=== PATIENT | female | born 1990 | race Caucasian/White ===

== ENCOUNTER 2017-04-05 20:21 | Emergency (ER) | payer BC ==
[~2017-04-05] VITALS: Ht 165.1 cm; Wt 102.1 kg
[~2017-04-05 20:21] MED LIST: BCPILLS PO; [UNRECOGNIZED DRUG - OTHER]
[2017-04-05 20:23] VITALS: TEMP 36.5; Ht 165.1 cm; Wt 102.1 kg
[2017-04-05] MEDS ORDERED: PHEN95TA14 PO (20:41)
[2017-04-05] MEDS ORDERED: SUMA100T16 PO (20:41)
[2017-04-05] MEDS ORDERED: BUPR-83 PO (20:41)
[2017-04-05 21:13] LABS: BASO % 0.1 %; BASO ABS # 0.01 K/uL (0-0.2); COMPLETE YES; EOS % 0.3 %; IG% 0.3 %; LYMPH % 18.6 %; LYMPH ABS # 2.13 K/uL (1.2-3.4); MEAN CELL VOLUME 86.8 fL (80-100); MEAN CORPUSCULAR HEMOGLOBIN 28.4 pg (25-34); MEAN CORPUSCULAR HGB CONC 32.8 g/dl (32-36); MONO % 5.3 %; NEUT % 75.4 %; PLATELET COUNT 255 K/uL (130-400); RED BLOOD COUNT 4.61 M/uL (4.2-5.4); WHITE BLOOD COUNT 11.44 K/uL (4.8-10.8)
[2017-04-05] MEDS ORDERED: KETOROLAC TROMETHAMINE 30 MG/ML VIAL IV STA (21:20)
[2017-04-05] MEDS ORDERED: PROCHLORPERAZINE 5 MG/ML 2 ML VIAL IV STA (21:20)
[2017-04-05] MEDS ORDERED: DiphenhydrAMINE HCL 50 MG/ML VIAL IV STA (21:20)
[2017-04-05] MEDS ORDERED: SODIUM CHLORIDE 0.9% 1000ML 2,000 ML IV STA (21:20)
[2017-04-05 21:30] LABS: BUN/CREATININE RATIO 18.2 (10-20); CALCIUM 9.2 mg/dl (8.5-10.1); CREATININE 0.68 mg/dl (0.60-1.20); POTASSIUM 4.1 mmol/L (3.5-5.1)
[2017-04-05 22:28] LABS: URINE APPEARANCE CLEAR (CLEAR); URINE BILIRUBIN NEG (NEG); URINE COLOR DK YELLOW; URINE EPITHELIAL CELL AUTO 20-30 /lpf (0-5); URINE NITRITE POS (NEG); URINE SPECIFIC GRAVITY 1.024 (1.000-1.030); UROBILINOGEN NEG (NEG)
[2017-04-05 22:36] LABS: MANUAL MICROSCOPIC REQUIRED? NO; REVIEW REQ? NO
[2017-04-05 22:37] LABS: SULFASALICYLIC ACID NEG (NEG)
[2017-04-05] MEDS ORDERED: CEFTRIAXONE SOD INJ 1 GM ADDVIAL IV STA (23:08)
[2017-04-06] MEDS ORDERED: CIPR-255 PO (00:25)
[2017-04-06] MEDS ORDERED: PROM25TA9 PO (00:25)
[2017-04-06] MEDS ORDERED: CIPROFLOXACIN 500 MG TAB PO STA (00:28)
[2017-04-06] MEDS ORDERED: PHENERGAN 25MG HOMEPACK PO ONE (00:30)
[2017-04-06 00:37] VITALS: BP 112/61; PULSE 67; O2SAT 98
--- NOTE | 2017-04-06 01:33 | EMERGENCY ROOM VISIT NOTE ---
History Report prepared by Miya: Babs Avilez Under the Supervision of: Dr. Rebel Tang M.D. First contact with patient: 20:49 Chief Complaint: VOMITING Stated Complaint: CHEST TIGHTNESS,VOMITING,SOB,WEAKNESS History of Present Illness The patient is a 27 year old female who presents to the Emergency Room with complaints of persistent vomiting starting 1430 today. She vomited over 10 times today. She also had 2 bowel movements within 30 minutes. She complains of abdominal pain which worsened with more vomiting. She started taking Azo yesterday because she developed urinary symptoms. She is still having the urinary symptoms. Today she developed a headache, but she has been unable to take any medications because of her vomiting. She has a history of migraines for several years now. She denies any previous abdominal surgeries. 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 She denies eating any unusual food recently. Pt denies LOC, fevers, chills, diaphoresis, visual changes, neck pain, chest pain, breathing difficulties, back pain, melena, hematochezia, numbness, weakness, lymphadenopathy, rash, or other complaints. Source of History: patient Onset: 1430 Position: other (global) Quality: other (vomiting) Timing: other (persistent) Associated Symptoms: + headache, + nausea, + abdominal pain, + urinary symptoms Review of Systems See HPI for pertinent positives and negatives. A total of ten systems were reviewed and were otherwise negative. Past Medical & Surgical Medical Problems: (1) FAM HX-DIABETES MELLITUS (2) FAM HX-ISCHEM HEART DIS (3) FAMILY HISTORY OF OTHER CARDIOVASCULAR DISEASES (4) FAMILY HX-MALIGNANCY NOS (5) Seizure (6) [place] Teeth Removal Family History No pertinent family history stated. Social History Smoking Status: Never Smoker Alcohol Use: occasionally Marital Status: single Housing Status: lives with family Occupation Status: employed Current/Historical Medications Scheduled Control Pills ( Control Pills), 1 TAB PO DAILY Bupropion (Wellbutrin), 100 MG PO QAM Ciprofloxacin Hcl (Cipro), 500 MG PO BID Phenazopyridine Hcl (Azo Tabs), 1 DOSE PO TID Sumatriptan Succinate (Imitrex), 100 MG PO PRN Scheduled PRN Promethazine Hcl (Phenergan), 25 MG PO Q6H PRN for Nausea Allergies Coded Allergies: Sulfa Drugs (Verified Allergy, Intermediate, SHORTNESS OF BREATH, 04/05/17 ) Physical Exam Vital Signs Date Time Temp Pulse Resp B/P (MAP) Pulse Ox O2 Delivery O2 Flow Rate FiO2 04/06/17 00:37 67 20 112/61 98 Room Air 04/05/17 23:35 72 20 131/73 97 Room Air 04/05/17 21:41 84 20 145/107 98 Room Air 04/05/17 20:23 36.5 92 20 163/113 98 Room Air Physical Exam GENERAL: Awake, alert, uncomfortable appearing, no distress HEAD: Normocephalic, atraumatic. No edema. EYES: Normal conjunctiva. Sclera non-icteric. OROPHARYNX: Lips, tongue, and mucosa unremarkable. No erythema or exudate. NECK: Supple. No nuchal rigidity. FROM. No adenopathy. RESPIRATORY: CTA bilaterally. No wheezes rales or rhonchi. CARDIAC: Borderline tachycardic rate, normal rhythm. ABDOMEN: Soft, non distended. Epigastric tenderness to palpation. No rebound or guarding. MUSCULOSKELETAL: Atraumatic. No edema. Patient has some mild left CVA tenderness. NEURO: Normal sensorium. SKIN: No rash or jaundice noted Medical Decision & Procedures Laboratory Results 04/05/17 21:05 Red Blood Count 4.61, Mean Corpuscular Volume 86.8, Mean Corpuscular Hemoglobin 28.4, Mean Corpuscular Hemoglobin Concent 32.8, Mean Platelet Volume 9.0, Neutrophils (%) (Auto) 75.4, Lymphocytes (%) (Auto) 18.6, Monocytes (%) (Auto) 5.3, Eosinophils (%) (Auto) 0.3, Basophils (%) (Auto) 0.1, Neutrophils # (Auto) 8.63, Lymphocytes # (Auto) 2.13, Monocytes # (Auto) 0.61, Eosinophils # (Auto) 0.03, Basophils # (Auto) 0.01 04/05/17 21:05 Test 04/05/17 21:05 04/05/17 21:55 White Blood Count 11.44 K/uL (4.8-10.8) Red Blood Count 4.61 M/uL (4.2-5.4) Hemoglobin 13.1 g/dL (12.0-16.0) Hematocrit 40.0 % (37-47) Mean Corpuscular Volume 86.8 fL (80-100) Mean Corpuscular Hemoglobin 28.4 pg (25-34) Mean Corpuscular Hemoglobin Concent 32.8 g/dl (32-36) Platelet Count 255 K/uL (130-400) Mean Platelet Volume 9.0 fL (7.4-10.4) Neutrophils (%) (Auto) 75.4 % Lymphocytes (%) (Auto) 18.6 % Monocytes (%) (Auto) 5.3 % Eosinophils (%) (Auto) 0.3 % Basophils (%) (Auto) 0.1 % Neutrophils # (Auto) 8.63 K/uL (1.4-6.5) Lymphocytes # (Auto) 2.13 K/uL (1.2-3.4) Monocytes # (Auto) 0.61 K/uL (0.11-0.59) Eosinophils # (Auto) 0.03 K/uL (0-0.5) Basophils # (Auto) 0.01 K/uL (0-0.2) RDW Standard Deviation 42.3 fL (36.4-46.3) RDW Coefficient of Variation 13.3 % (11.5-14.5) Immature Granulocyte % (Auto) 0.3 % Immature Granulocyte # (Auto) 0.03 K/uL (0.00-0.02) Anion Gap 7.0 mmol/L (3-11) Est Creatinine Clear Calc Drug Dose 148.5 ml/min Estimated GFR () 139.9 Estimated GFR (Non- 120.7 BUN/Creatinine Ratio 18.2 (10-20) Calcium Level 9.2 mg/dl (8.5-10.1) Total Bilirubin 0.5 mg/dl (0.2-1) Aspartate Amino Transf (AST/SGOT) 20 U/L (15-37) Alanine Aminotransferase (ALT/SGPT) 31 U/L (12-78) Alkaline Phosphatase 63 U/L (45-117) Total Protein 7.9 gm/dl (6.4-8.2) Albumin 3.9 gm/dl (3.4-5.0) Globulin 4.0 gm/dl (2.5-4.0) Albumin/Globulin Ratio 1.0 (0.9-2) Urine Color DK YELLOW Urine Appearance CLEAR (CLEAR) Urine pH 8.0 (4.5-7.5) Urine Specific [place] 1.024 (1.000-1.030) Urine Protein NEG (NEG) Urine Glucose (UA) NEG (NEG) Urine Ketones NEG (NEG) Urine Occult Blood NEG (NEG) Urine Nitrite POS (NEG) Urine Bilirubin NEG (NEG) Urine Urobilinogen NEG (NEG) Urine Leukocyte Esterase MODERATE (NEG) Urine WBC (Auto) >30 /hpf (0-5) Urine RBC (Auto) 0-4 /hpf (0-4) Urine Hyaline Casts (Auto) 1-5 /lpf (0-5) Urine Epithelial Cells (Auto) 20-30 /lpf (0-5) Urine Bacteria (Auto) 4+ (NEG) Urine Test NEG (NEG) Laboratory results reviewed by me Medications Administered Medications (Trade) Dose Ordered Sig/Braulio Route Start Time Stop Time Status Last Admin Dose Admin Sodium Chloride 2,000 ml @ 999 mls/hr Q2H1M STAT IV 04/05/17 21:20 04/05/17 23:20 DC 04/05/17 21:30 999 MLS/HR Prochlorperazine Edisylate (Compazine Inj) 10 mg NOW STAT IV 04/05/17 21:20 04/05/17 21:22 DC 04/05/17 21:29 10 MG Diphenhydramine HCl (Benadryl Inj) 50 mg NOW STAT IV 04/05/17 21:20 04/05/17 21:22 DC 04/05/17 21:30 50 MG Ketorolac Tromethamine (Toradol Inj) 10 mg NOW STAT IV 04/05/17 21:20 04/05/17 21:22 DC 04/05/17 21:30 10 MG Ceftriaxone Sodium (Rocephin Inj) 1 gm NOW STAT IV 04/05/17 23:08 04/05/17 23:09 DC 04/05/17 23:32 1 GM Promethazine HCl (Phenergan 25MG Home Pack) 1 homepack UD ONCE PO 04/06/17 00:30 04/06/17 00:31 DC 04/06/17 00:35 1 HOMEPACK Ciprofloxacin (Cipro Tab) 500 mg NOW STAT PO 04/06/17 00:28 04/06/17 00:29 DC 04/06/17 00:35 500 MG ED Course 2113: The patient was evaluated in room C8. A complete history and physical exam was performed. 2119: Toradol Inj 10 mg IV, Benadryl Inj 50 mg IV, Compazine Inj 10 mg IV, NSS 2000 ml @ 999 mls/hr IV. 8: Rocephin Inj 1 gm IV. 2320: I reevaluated the patient. She is feeling much better. I discussed the results and treatment plan. 0028: Ciprofloxacin 500 mg PO. 0029: I reevaluated the patient. She feels much better. I discussed results and discharge instructions: she verbalized understanding and agreement. The patient is ready for discharge. 0030: Promethazine HCl 1 homepack PO. Medical Decision Triage Nursing notes reviewed. The patient's presentation and history were concerning for nausea and vomiting with urinary symptoms. Etiologies such as UTI, gastroenteritis, food borne illness, infections, obstruction, pancreatitis, appendicitis, diverticulitis, inflammatory bowel disease, GI bleed, biliary pathology, toxicologic as well as others were entertained. The patient was evaluated. She was given Compazine and Benadryl and IV fluids. She was hydrated and felt much better. She was given Toradol as well. The patient's urinalysis is concerning for infection. Her CBC and chemistry panel are unremarkable. Patient is given IV Rocephin. On reassessment she was feeling much better. This seems to be most consistent with pyelonephritis given the constellation of symptoms and workup here. She had a benign abdomen. Imaging was deferred. The patient will be placed on Cipro. Phenergan was given for use in case of nausea and vomiting. If she worsens she will come back.I gave my usual and customary discussion regarding this issue. Work note given. By the evaluation outlined above other emergent etiologies such as those listed in the differential, as well as others, were deemed relatively unlikely. The patient was educated about the findings as listed above. All questions were answered and the patient was pleased with the treatment. Return instructions were outlined and the patient was discharged in stable condition. The patient was referred to her PCP for follow-up for a recheck of the current condition. Medication Reconcilliation Current Medication List: was personally reviewed by me Blood Pressure Screening Patient's blood pressure: Elevated blood pressure Blood pressure disposition: Referred to PCP Impression Primary Impression: Pyelonephritis Additional Impression: Vomiting Scribe Attestation The scribe's documentation has been prepared under my direction and personally reviewed by me in its entirety. I confirm that the note above accurately reflects all work, treatment, procedures, and medical decision making performed by me. Departure Information Dispostion Home / Self-Care Prescriptions Promethazine Hcl (Phenergan) 25 Mg Tab 25 MG PO Q6H Y for Nausea, #10 TAB Prov: Rebel Tang MD 04/06/17 Ciprofloxacin Hcl (CIPRO) 500 Mg Tab 500 MG PO BID, #14 TAB Prov: Rebel Tang MD 04/06/17 Referrals Nancy Cat M.D. Forms HOME CARE DOCUMENTATION FORM, IMPORTANT VISIT INFORMATION Patient Instructions My [facility] Additional Instructions URINARY TRACT INFECTION INSTRUCTIONS: Ciprofloxacin(Cipro) 500mg: Take one pill twice daily for 7 days for your urine infection. All antibiotics can cause diarrhea. If this occurs and you feel worse or it does not resolve in 1-2 days follow up with your doctor or return to the Emergency Department as this could be signs of serious underlying problems. If you experience any pain in your tendons or any tendon injury return to the ER for re-evaluation. Any medication can cause an allergic reaction, stop the pills immediately and return to the ER for rash, hives, breathing difficulties, or swelling. Phenergan 25mg tabs, one every six hours for nausea. Ibuprofen(Motrin, Advil) may be used for fever or pain. Use 600mg every six hours as needed. Take with food. Avoid using more than 2400mg in a 24 hour period. Do not use 2400mg per day for more than three consecutive days without physician direction. Prolonged inappropriate use can lead to stomach upset or ulcers. (AND/OR) Acetaminophen(Tylenol) may be used for fever or pain. Use 1000mg every six hours as needed. Avoid using more than 4000mg in a 24 hour period. Rest and drink plenty of fluids. Continue current medications. Return to the ER immediately for worsening or persistent abdominal pain, vomiting, fevers, back or flank pain, worsening of your condition, or as needed. Follow up with your primary physician within 2-3 days for a recheck of the current condition. Problem Qualifiers
--- NOTE | 2017-04-07 11:53 | Pharmacy Progress Note ---
ED Pharmacist Culture FollowUp Date of Service: Apr 07, 2017. Patient was sent home with a prescription for ciprofloxacin, which should cover the E. coli growing from the patient's urine culture.
== END 2017-04-06 00:44 | disposition home or self-care (01) ==
LOC: C.EDB 20:22 → C.EDC 04-06 00:44
DX: N10 Acute pyelonephritis (principal); R11.10 Vomiting, unspecified; G40.909 Epilepsy, unspecified, not intractable, without status epilepticus; Z79.899 Other long term (current) drug therapy; Z88.2 Allergy status to sulfonamides

== ENCOUNTER → 2017-04-14 | Outpatient (CLI) | payer OTHER ==
[~2017-04-14] MED LIST changes: +BUPR-83 PO; +CIPR-255 PO; +PHEN95TA14 PO; +PROM25TA9 PO; +SUMA100T16 PO; -[UNRECOGNIZED DRUG - OTHER]
[2017-04-19 04:30] LABS: HEPATITIS BE ANTIGEN TC 555 Nonreactive
== END | disposition home or self-care (01) ==
LOC: C.LAB1850 16:04
PROVIDERS: ATTEND Internal Medicine
DX: Z57.8 Occupational exposure to other risk factors (principal)

== ENCOUNTER 2018-02-07 23:33 | Emergency (ER) | payer BC, OTHER ==
[~2018-02-07] VITALS: Ht 165.1 cm; Wt 107.7 kg
[~2018-02-07 23:33] MED LIST changes: -PROM25TA9 PO
[2018-02-07 23:55] VITALS: Ht 165.1 cm; Wt 107.7 kg
[2018-02-08] MEDS ORDERED: ONDANSETRON INJ 2 MG/ML 2 ML VIAL IV STA (00:11)
[2018-02-08] MEDS ORDERED: KETOROLAC TROMETHAMINE 30 MG/ML VIAL IV STA (00:11)
[2018-02-08] MEDS ORDERED: SODIUM CHLORIDE 0.9% 1000ML 1,000 ML IV STA (00:11)
--- NOTE | 2018-02-08 00:19 | EMERGENCY ROOM VISIT NOTE ---
History Report prepared by Miya: Juan Denton Under the Supervision of: Dr. Janis Camacho D.O. First contact with patient: 23:51 Chief Complaint: INFECTION Stated Complaint: RED ITCHY BUMPS ON HANDS,FEET AND THROAT SORE History of Present Illness The patient is a 27 year old female who presents to the Emergency Room with complaints of a constant sore throat beginning three days ago. The patient states that she started to feel ill three days ago but thought that she was just overworked and tired. She notes that she developed a fever that worsened yesterday. She also complains of difficulty swallowing. She reports that she went to a walk in clinic and was told that she had a viral URI and had liquid draining from behind her ears. The patient states that she had a rapid strep test done at that time which came back negative. She also complains of diarrhea and vomiting beginning yesterday. She reports that she has not been able to keep anything down for the last 24 hours and she states that her fever has not broken in the last three days. She notes that she also developed red bumps on her hands, chest, and feet. She reports that she has white bumps in the back of her throat. She denies any abdominal pain. The patient states that she has been taking Tylenol and aspirin for her fever, and she notes that she last took Tylenol around 2229. 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 She reports that her niece recently had a cold. The patient states that she has a history of two sebaceous cysts removed from her right breast as well as her wisdom teeth removed. Source of History: patient Onset: three days ago Position: other (throat) Quality: other (sorethroat) Timing: constant Associated Symptoms: + fevers, + vomiting, + diarrhea, No abdominal pain Note: The patient also complains of difficulty swallowing, red bumps on her hands, chest, and feet, and white bumps in the back of her throat. Review of Systems See HPI for pertinent positives & negatives. A total of 10 systems reviewed and were otherwise negative. Past Medical & Surgical Medical Problems: (1) FAM HX-DIABETES MELLITUS (2) FAM HX-ISCHEM HEART DIS (3) FAMILY HISTORY OF OTHER CARDIOVASCULAR DISEASES (4) FAMILY HX-MALIGNANCY NOS (5) Migraine (6) Sebaceous cyst of breast (7) Seizure (8) UTI (urinary tract infection) (9) [place] Teeth Removal Family History Cancer Hypertension Seizures Social History Smoking Status: Never Smoker Alcohol Use: occasionally Marital Status: single Housing Status: lives with family Occupation Status: employed Current/Historical Medications Scheduled Control Pills ( Control Pills), 1 TAB PO DAILY Doxycycline (Monohydrate) (Doxycycline), 100 MG PO BID Triamcinolone Acetonide (Topic (Triamcinolone Acet 0.025%), 1 APPLN TOP DAILY Scheduled PRN Fluticasone Propionate (Nasal) (Flonase Allergy Relief), 1-2 SPRAYS ANASTACIA DAILY PRN for Nasal Congestion Sumatriptan Succinate (Imitrex), 100 MG PO UD PRN for Migraine Allergies Coded Allergies: Sulfa Drugs (Verified Allergy, Intermediate, SHORTNESS OF BREATH, 02/08/18) Physical Exam Vital Signs Date Time Temp Pulse Resp B/P (MAP) Pulse Ox O2 Delivery O2 Flow Rate FiO2 02/08/18 01:12 37.0 89 16 116/89 97 Room Air 02/08/18 00:29 90 16 120/85 99 Room Air 02/07/18 23:55 37.4 113 20 158/103 98 Room Air Physical Exam HEENT: Head - normocephalic and atraumatic Pupils are equal, round, and reactive to light. Extraocular eye muscles are intact, and sclera are anicteric. Nose - moist nasal mucosa without discharge. Mouth - moist buccal mucosa. Oropharynx is nonerythematous. Tonsillar exudate and edema noted. Vesicular lesions about roof of mouth. Ears - TMs normal. Neck: Supple; no JVD, nuchal rigidity, cervical lymphadenopathy Heart: Regular rate and rhythm. There is a normal S1 and S2 with no murmurs, clicks, or gallops appreciated. Lungs: Clear to auscultation bilaterally with no wheezes, rales, or rhonchi. Abdomen: Soft, completely nontender, nondistended, with good bowel sounds. There are no palpable pulsatile masses or hepatosplenomegaly. There is no guarding, rigidity, or rebound noted. Extremities: No evidence of cyanosis, clubbing, or edema. There are easily palpable peripheral pulses. Skin: warm and dry with good turgor. Papular lesions to the palms of hands and soles of feet. Medical Decision & Procedures Laboratory Results 02/08/18 00:20 Red Blood Count 4.59, Mean Corpuscular Volume 86.5, Mean Corpuscular Hemoglobin 28.8, Mean Corpuscular Hemoglobin Concent 33.2, Mean Platelet Volume 9.4, Neutrophils (%) (Auto) 69.1, Lymphocytes (%) (Auto) 20.3, Monocytes (%) (Auto) 10.4, Eosinophils (%) (Auto) 0.0, Basophils (%) (Auto) 0.1, Neutrophils # (Auto ) 5.42, Lymphocytes # (Auto) 1.59, Monocytes # (Auto) 0.82, Eosinophils # (Auto ) 0.00, Basophils # (Auto) 0.01 02/08/18 00:20 Test 02/08/18 00:00 02/08/18 00:20 Urine Color DK YELLOW Urine Appearance CLOUDY (CLEAR) Urine pH 5.0 (4.5-7.5) Urine Specific [place] 1.022 (1.000-1.030) Urine Protein TRACE (NEG) Urine Glucose (UA) NEG (NEG) Urine Ketones TRACE (NEG) Urine Occult Blood TRACE (NEG) Urine Nitrite NEG (NEG) Urine Bilirubin NEG (NEG) Urine Urobilinogen NEG (NEG) Urine Leukocyte Esterase MODERATE (NEG) Urine WBC (Auto) >30 /hpf (0-5) Urine RBC (Auto) 0-4 /hpf (0-4) Urine Hyaline Casts (Auto) 5-10 /lpf (0-5) Urine Epithelial Cells (Auto) >30 /lpf (0-5) Urine Bacteria (Auto) 2+ (NEG) White Blood Count 7.85 K/uL (4.8-10.8) Red Blood Count 4.59 M/uL (4.2-5.4) Hemoglobin 13.2 g/dL (12.0-16.0) Hematocrit 39.7 % (37-47) Mean Corpuscular Volume 86.5 fL (80-100) Mean Corpuscular Hemoglobin 28.8 pg (25-34) Mean Corpuscular Hemoglobin Concent 33.2 g/dl (32-36) Platelet Count 195 K/uL (130-400) Mean Platelet Volume 9.4 fL (7.4-10.4) Neutrophils (%) (Auto) 69.1 % Lymphocytes (%) (Auto) 20.3 % Monocytes (%) (Auto) 10.4 % Eosinophils (%) (Auto) 0.0 % Basophils (%) (Auto) 0.1 % Neutrophils # (Auto) 5.42 K/uL (1.4-6.5) Lymphocytes # (Auto) 1.59 K/uL (1.2-3.4) Monocytes # (Auto) 0.82 K/uL (0.11-0.59) Eosinophils # (Auto) 0.00 K/uL (0-0.5) Basophils # (Auto) 0.01 K/uL (0-0.2) RDW Standard Deviation 41.3 fL (36.4-46.3) RDW Coefficient of Variation 13.1 % (11.5-14.5) Immature Granulocyte % (Auto) 0.1 % Immature Granulocyte # (Auto) 0.01 K/uL (0.00-0.02) Anion Gap 8.0 mmol/L (3-11) Est Creatinine Clear Calc Drug Dose 142.5 ml/min Estimated GFR () 131.7 Estimated GFR (Non- 113.7 BUN/Creatinine Ratio 8.9 (10-20) Calcium Level 8.8 mg/dl (8.5-10.1) Laboratory results per my review. Medications Administered Medications (Trade) Dose Ordered Sig/Braulio Route Start Time Stop Time Status Last Admin Dose Admin Ketorolac Tromethamine (Toradol Inj) 30 mg NOW STAT IV 02/08/18 00:11 02/08/18 00:12 DC 02/08/18 00:26 30 MG Ondansetron HCl (Zofran Inj) 4 mg NOW STAT IV 02/08/18 00:11 02/08/18 00:12 DC 02/08/18 00:25 4 MG Sodium Chloride 1,000 ml @ 999 mls/hr Q1H1M STAT IV 02/08/18 00:11 02/08/18 01:11 DC 02/08/18 00:25 999 MLS/HR Procedure Medications Administered: Sodium Chloride 1000 ml @ 999 mls/hr IV, Zofran Inj 4mg IV, and Toradol Inj 30mg IV. ED Course 2357: The patient was evaluated in room C9. A complete history and physical examination were performed. Nursing notes and previous electronic medical records were reviewed. IV lock was established and labs were drawn as above. 0011: Sodium Chloride 1000 ml @ 999 mls/hr IV, Zofran Inj 4mg IV, Toradol Inj 30mg IV. 0122: The patient's urine will be sent for culture. She denies any urinary symptoms. 0123: Upon reevaluation, the patient is stable. She feels much better and is drinking liquids. I discussed findings and results with her. She verbalized agreement of the treatment plan. The patient was discharged home. Medical Decision The patient is a 27 year old female who presents to the Emergency Room with complaints of a constant sore throat beginning three days ago. Differential diagnoses include: hand, foot, and mouth disease, viral illness, URI, pharyngitis, strep, dehydration, and gastroenteritis. Lab Results Show: No leukocytosis. Stable H&H. Normal glucose. Normal renal function. Urine shows: trace protein, trace ketones, trace blood, 2+ bacteria, >30 WBCs and moderate leukocyte esterase. This is a 27-year-old female patient presents to the emergency department with a severe sore throat, fever, vomiting, diarrhea and lesions on her hands and feet. On physical exam, it appears that she has zjwi-nnzu-[id number]-mouth disease. She is somewhat dehydrated. She was given IV fluids and analgesia and is feeling much much better. She had previously had strep testing performed as an outpatient. This was negative. She had no further episodes of vomiting or diarrhea while here in the ER. I have asked the patient to rest. She is unable to go to work at [employer] until she is without fever for 24 hours. Medication Reconcilliation Current Medication List: was personally reviewed by me Blood Pressure Screening Patient's blood pressure: Normal blood pressure Blood pressure disposition: Did not require urgent referral Impression Primary Impression: Hand, foot and mouth disease Additional Impression: Vomiting and diarrhea Scribe Attestation The scribe's documentation has been prepared under my direction and personally reviewed by me in its entirety. I confirm that the note above accurately reflects all work, treatment, procedures, and medical decision making performed by me. Departure Information Dispostion Home / Self-Care Referrals No Doctor, Assigned (PCP) Forms HOME CARE DOCUMENTATION FORM, IMPORTANT VISIT INFORMATION, WORK / SCHOOL INSTRUCTIONS Patient Instructions My [facility] Additional Instructions Rest. take plenty of clear liquids ibuprofen - 800mg every 6 hours with food for pain No work until 24 hours without fever. Problem Qualifiers
[2018-02-08 00:40] LABS: BASO % 0.1 %; BASO ABS # 0.01 K/uL (0-0.2); HEMATOCRIT 39.7 % (37-47); HEMOGLOBIN 13.2 g/dL (12.0-16.0); IG# 0.01 K/uL (0.00-0.02); LYMPH % 20.3 %; LYMPH ABS # 1.59 K/uL (1.2-3.4); MEAN CELL VOLUME 86.5 fL (80-100); MEAN CORPUSCULAR HEMOGLOBIN 28.8 pg (25-34); MEAN CORPUSCULAR HGB CONC 33.2 g/dl (32-36); MEAN PLATELET VOLUME 9.4 fL (7.4-10.4); MONO % 10.4 %; MONO ABS # 0.82 K/uL (0.11-0.59); NEUT % 69.1 %; NEUT ABS # 5.42 K/uL (1.4-6.5); PLATELET COUNT 195 K/uL (130-400); RED CELL DISTRIBUTION WIDTH CV 13.1 % (11.5-14.5); RED CELL DISTRIBUTION WIDTH SD 41.3 fL (36.4-46.3); WHITE BLOOD COUNT 7.85 K/uL (4.8-10.8)
[2018-02-08 00:57] LABS: CALCIUM 8.8 mg/dl (8.5-10.1); CREATININE 0.73 mg/dl (0.60-1.20); POTASSIUM 3.5 mmol/L (3.5-5.1)
[2018-02-08 01:12] VITALS: BP 116/89; PULSE 89; TEMP 37; O2SAT 97
[2018-02-08] MEDS ORDERED: DOXY-300 PO (01:35)
[2018-02-08] MEDS ORDERED: FLUT0.15 NAE (01:36)
[2018-02-08] MEDS ORDERED: TRMO2580 TOP (01:37)
== END 2018-02-08 01:32 | disposition home or self-care (01) ==
LOC: C.EDB 23:35 → C.EDC 02-08 01:32
DX: B08.4 Enteroviral vesicular stomatitis with exanthem (principal); E86.0 Dehydration; Z87.440 Personal history of urinary (tract) infections; Z83.3 Family history of diabetes mellitus; Z82.49 Family history of ischemic heart disease and other diseases of the circulatory system; Z80.9 Family history of malignant neoplasm, unspecified; Z82.0 Family history of epilepsy and other diseases of the nervous system; Z79.3 Long term (current) use of hormonal contraceptives; Z88.2 Allergy status to sulfonamides